=== PATIENT | male | born 2000 | race Caucasian/White ===

== ENCOUNTER 2018-12-22 20:35 | Emergency (ER) | payer MEDICAID ==
--- NOTE | 2018-12-22 21:39 | EDM.PDOC ---
ED HPI GENERAL MEDICAL PROBLEM - General Stated Complaint: BROKE TOE Time Seen by Provider: 12/22/18 21:39 Source of Information: Reports: Patient, RN, RN Notes Reviewed History Limitations: Reports: No Limitations - History of Present Illness INITIAL COMMENTS - FREE TEXT/NARRATIVE: Pt to ER with c/o possibly breaking the 4th toe on the left foot. He states he was playing BB and came down on his toes. He states the toe was deformed and he twisted it back into place. Unsure if it was dislocated or fractured. Patient states he then noticed blood under the toe as well. States he is up to date on his tetanus vaccination. Onset: Today, Sudden Left Toe-Ring Pain Score (Numeric/FACES): 3 - Related Data Allergies Allergy/AdvReac Type Severity Reaction Status Date / Time No Known Allergies Allergy Verified 12/22/18 21:39 Home Meds: Home Meds Celecoxib [CeleBREX] 200 mg PO BID 12/22/18 [History] Past Medical History - Past Health History Medical/Surgical History: Denies Medical/Surgical History Social & Family History - Family History Family Medical History: Noncontributory - Caffeine Use Caffeine Use: Reports: Soda - Living Situation & Occupation Living situation: Reports: with Family Occupation: Student Review of Systems - Review of Systems Review Of Systems: ROS reveals no pertinent complaints other than HPI. ED EXAM, GENERAL - Physical Exam Exam: See Below Exam Limited By: No Limitations General Appearance: Alert, WD/WN, Mild Distress Eye Exam: Bilateral Eye: EOMI, Normal Inspection Ears: Normal External Exam, Hearing Grossly Normal Nose: Normal Inspection Throat/Mouth: Normal Inspection, Normal Voice, No Airway Compromise Head: Atraumatic, Normocephalic Neck: Normal Inspection, Supple, Non-Tender, Full Range of Motion Respiratory/Chest: No Respiratory Distress, Lungs Clear, Normal Breath Sounds, No Accessory Muscle Use, Chest Non-Tender Cardiovascular: Normal Peripheral Pulses, Regular Rate, Rhythm, No Edema, No Gallop, No JVD, No Murmur, No Rub Peripheral Pulses: 2+: Radial (L), Radial (R), Dorsalis Pedis (L) GI/Abdominal: Normal Bowel Sounds, Soft, Non-Tender (Male) Exam: Deferred Rectal (Males) Exam: Deferred Back Exam: Normal Inspection, Full Range of Motion, NT Extremities: Normal Inspection, Normal Range of Motion, Non-Tender, No Pedal Edema, Normal Capillary Refill, Other (Pain to left 4th toe) Neurological: Alert, Oriented, CN II-XII Intact, Normal Cognition, Normal Gait, Normal Reflexes, No Motor/Sensory Deficits Psychiatric: Normal Affect, Normal Mood Skin Exam: Warm, Dry, Normal Color, No Rash, Other (open area to the ventral area of the left 4th toe) Lymphatic: No Adenopathy Course - Vital Signs Last Recorded V/S: Last Vital Signs Temp 99.1 F 12/22/18 21:39 Pulse 83 12/22/18 21:39 Resp 16 12/22/18 21:39 BP 142/76 H 12/22/18 21:39 Pulse Ox 100 12/22/18 21:39 - Orders/Labs/Meds Meds: Medications Discontinued Medications Generic Name Dose Route Start Last Admin Trade Name Bongq PRN Reason Stop Dose Admin Cephalexin 500 mg 12/22/18 22:29 12/22/18 22:38 Keflex PO 12/22/18 22:30 500 mg ONETIME ONE Administration - Radiology Interpretation Free Text/Narrative:: Left foot, 4th toe xray: No acute findings. See rad report Departure - Departure Time of Disposition: 22:27 Disposition: Home, Self-Care 01 Condition: Fair Clinical Impression: Open dislocation - Discharge Information *PRESCRIPTION DRUG MONITORING PROGRAM REVIEWED*: No *COPY OF PRESCRIPTION DRUG MONITORING REPORT IN PATIENT KEI: No Instructions: Toe Dislocation, [id number] Referrals: PCP,None [Primary Care Provider] - Forms: ED Department Discharge Additional Instructions: RX: Cephalexin Keep area clean and dry, you may shower Keep toes taped together as tolerated for 2 weeks (changing dressing daily) Follow up with your primary care facility if no improvement
[2018-12-22 21:40] VITALS: BP 142/76
[2018-12-22] MEDS ORDERED: Cephalexin 500 MG Cap PO ONE (22:29)
== END 2018-12-22 22:45 | disposition home or self-care (01) ==
LOC: DL.ED 20:35
DX: S93.105A Unspecified dislocation of left toe(s), initial encounter (principal); X50.1XXA Overexertion from prolonged static or awkward postures, initial encounter; Z79.899 Other long term (current) drug therapy; Y93.67 Activity, basketball
CPT/HCPCS: 73660; 99283; A9270